=== PATIENT | male | born 1970 | race Caucasian/White ===

== ENCOUNTER 2017-04-27 16:50 | Inpatient (IN) | payer MEDICARE, OTHER ==
[~2017-04-27] VITALS: Ht 175.3 cm; Wt 79.5 kg
[~2017-04-27 16:50] MED LIST: KETO2%T TOP
[2017-04-27 17:14] VITALS: BP 119/83; PULSE 83; RESP 16; TEMP 98.9; O2SAT 96
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
[2017-04-27] MEDS ORDERED: [UNRECOGNIZED DRUG - OTHER] (17:49)
[2017-04-27] MEDS ORDERED: CELE20TA PO (17:49)
[2017-04-27] MEDS ORDERED: KLON2TAB PO (17:49)
[2017-04-27] MEDS ORDERED: STELAZINE (17:49)
[2017-04-27 18:24] LABS: AUTOMATED NEUTROPHIL # 9.3 TH/MM3 (1.8-7.7); BASOPHIL # 0.1 TH/MM3 (0-0.2); BASOPHIL % 0.5 % (0.0-2.0); EOSINOPHIL # 0.3 TH/MM3 (0-0.4); EOSINOPHIL % 2.1 % (0.0-4.0); HEMATOCRIT 46.6 % (39.0-51.0); HEMO FLAGS DIFF FINAL; LYMPH % 14.9 % (9.0-44.0); LYMPHOCYTE # 1.9 TH/MM3 (1.0-4.8); MEAN CELL VOLUME 94.3 FL (80.0-100.0); MEAN CORPUSCULAR HEMOGLOBIN 30.4 PG (27.0-34.0); MEAN CORPUSCULAR HGB CONC 32.2 % (32.0-36.0); MONO % 8.5 % (0.0-8.0); PLATELET COUNT 261 TH/MM3 (150-450); RED BLOOD COUNT 4.94 MIL/MM3 (4.50-5.90); RED CELL DISTRIBUTION WIDTH 13.4 % (11.6-17.2); WHITE BLOOD COUNT 12.6 TH/MM3 (4.0-11.0)
[2017-04-27 18:41] LABS: ALKALINE PHOSPHATASE 94 U/L (45-117); TOTAL BILIRUBIN ADULT 0.3 MG/DL (0.2-1.0)
[2017-04-27 18:50] LABS: ALT (GPT) 26 U/L (12-78); ANION GAP 8 MEQ/L (5-15); AST (GOT) 22 U/L (15-37); BICARBONATE 24.8 MEQ/L (21.0-32.0); BLOOD UREA NITROGEN 9 MG/DL (7-18); CHLORIDE 106 MEQ/L (98-107); GLOMERULAR FILTRATION RATE 81 ML/MIN (>89); POTASSIUM 3.9 MEQ/L (3.5-5.1); SODIUM (NA) 139 MEQ/L (136-145)
[2017-04-27 20:52] VITALS: BP 132/73; PULSE 110; RESP 18; O2SAT 97
[2017-04-27 22:05] LABS: AMPHETAMINE, URINE NEG (NEG); BARBITURATES, URINE NEG (NEG); COCAINE, URINE NEG (NEG)
[2017-04-27 22:10] VITALS: BP 115/69; PULSE 95; RESP 18; O2SAT 97
[2017-04-28 00:28] VITALS: BP 98/69; PULSE 98; RESP 18; TEMP 98; O2SAT 99
[2017-04-28] MEDS ORDERED: BENZTROPINE MESYLATE 2 MG/2 ML VIAL IM PRN (00:45)
[2017-04-28] MEDS ORDERED: LORazepam 2 MG/ML VIAL IM PRN (00:45)
[2017-04-28] MEDS ORDERED: BENZTROPINE MESYLATE 1 MG TAB PO PRN (00:45)
[2017-04-28] MEDS ORDERED: ACETAMINOPHEN 325 MG TAB PO PRN ×2 (00:45→10:45)
[2017-04-28] MEDS ORDERED: diphenhydrAMINE HCL 50 MG CAP PO PRN (00:45)
[2017-04-28] MEDS ORDERED: MAGNESIUM HYDROXIDE SUSP 30 ML CUP PO PRN ×2 (00:45→10:45)
[2017-04-28] MEDS ORDERED: ALUMINUM/MAGNESIUM/SIMETH 30 ML CUP PO PRN ×2 (00:45→10:45)
[2017-04-28] MEDS ORDERED: diphenhydrAMINE HCL 50 MG/ML VIAL IM PRN (00:45)
[2017-04-28] MEDS ORDERED: LORazepam 1 MG TAB PO PRN (00:45)
[2017-04-28] MEDS: NICOTINE 21 MG/24 HR PATCH T-DERMAL SCH (08:30)
[2017-04-28 10:09] LABS: ANION GAP 8 MEQ/L (5-15); BICARBONATE 24.6 MEQ/L (21.0-32.0); BLOOD UREA NITROGEN 8 MG/DL (7-18); CHLORIDE 105 MEQ/L (98-107); GLOMERULAR FILTRATION RATE 92 ML/MIN (>89); POTASSIUM 3.7 MEQ/L (3.5-5.1); SODIUM (NA) 138 MEQ/L (136-145)
[2017-04-28 10:11] LABS: HDL CHOLESTEROL 25.3 MG/DL (40.0-60.0); LDL CHOLESTEROL 65 MG/DL (0-99)
[2017-04-28] MEDS ORDERED: traZODone HCL 50 MG TAB PO PRN (10:45)
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
[2017-04-28 16:52] LABS: HEMOGLOBIN A1a 1.1 %; HEMOGLOBIN A1b 1.9 %; HEMOGLOBIN Ao 83.7 %; HEMOGLOBIN LA1C 2.3 %
[2017-04-28 18:00] VITALS: BP 114/50; PULSE 83; RESP 16
[2017-04-28] MEDS: REMOVE OLD NICOTINE PATCH T-DERMAL SCH (20:43)
[2017-04-29 05:35] VITALS: BP 105/61; PULSE 84; RESP 18; TEMP 97.7; O2SAT 95
[2017-04-29] MEDS: NICOTINE 21 MG/24 HR PATCH T-DERMAL SCH (09:00)
[2017-04-29] MEDS ORDERED: NICOTINE 21 MG/24 HR PATCH T-DERMAL SCH (09:00)
[2017-04-29 11:18] VITALS: BP 156/79; PULSE 76; RESP 18; O2SAT 98
--- NOTE | 2017-04-29 11:59 | HHI.PYPN ---
Subjective Remarks This is a request for second opinion. Patient's note was reviewed, case discussed with nursing, and patient seen for the interview. Patient is initially pleasant but becomes guarded and oppositional poor insight into his mental health. Admits to being off medications for 3 months and has been wandering apparently for the past 3 months [place] to . Patient says he used to be on Stelazine and Celexa but this cannot be confirmed. He remains with a fixed delusion that the government in the episc[employer] are conspiring against him. He gets irritable when asked specifics. Denies auditory hallucinations. Behaving well on the unit Objective Alert: Yes [place]: Person, Place Mood: Angry Affect: Blunted Memory Intact: Immediate (not formally tested) Hallucinations: Auditory (denies) Delusions: Yes Delusion Type: Paranoid (that the episcopalian and government is conspiring against him) Suicidal: Ideation (denies) Homicidal: Ideation (denies) Insight/Judgment Poor Vitals/IOs Vital Signs Date Time Temp Pulse Resp B/P Pulse Ox O2 Delivery O2 Flow Rate FiO2 04/29/17 11:18 76 18 156/79 98 04/29/17 05:35 97.7 04/27/17 22:10 Room Air Assessment & Plan Problem List: (1) Paranoid type schizophrenia, chronic state ICD Code: F20.0 Assessment & Plan I agree with first opinion to continue petition secondary to acute psychosis. We will start Zyprexa by mouth or IM after find a family member or friend to approve his medications Justification for Cont. Inpt. Patient will decompensate in a less restrictive setting Request HC Surrog/Guard Advoc?: No Bertin Díaz DO Apr 29, 2017 11:59
[2017-04-29] MEDS ORDERED: OLANZapine IM 10 MG VIAL IM SCH (12:00)
[2017-04-29] MEDS ORDERED: OLANZapine 5 MG TAB PO SCH (12:00)
[2017-04-29 18:43] VITALS: BP 120/68; PULSE 75; RESP 18; TEMP 98.1; O2SAT 97
[2017-04-29] MEDS: REMOVE OLD NICOTINE PATCH T-DERMAL SCH (21:00)
[2017-04-30 06:19] VITALS: BP 116/55; PULSE 76; RESP 16; TEMP 97.3; O2SAT 96
[2017-04-30] MEDS: NICOTINE 21 MG/24 HR PATCH T-DERMAL SCH (09:00)
--- NOTE | 2017-04-30 14:47 | HHI.PYPN ---
Subjective Remarks Patient was seen and case discussed with nursing. Patient remains oppositional but less so compared to yesterday. Provided a phone number for his mother to get collaterals and approval for medications. However, per nursing nobody is taking up the phone. He remains this fixed delusions and has poor insight into his mental health. Affect is sarcastic and apathetic. Objective Alert: Yes [place]: Person, Place, Date Mood: Oppositional Affect: Blunted Memory Intact: Immediate (not formally tested) Hallucinations: Auditory (denies) Delusions: Yes Delusion Type: Paranoid (that the [employer] and [employer] is conspiring against him) Suicidal: Ideation (denies) Homicidal: Ideation (denies) Insight/Judgment Poor Vitals/IOs Vital Signs Date Time Temp Pulse Resp B/P Pulse Ox O2 Delivery O2 Flow Rate FiO2 04/30/17 06:19 97.3 76 16 116/55 96 04/27/17 22:10 Room Air Assessment & Plan Problem List: (1) Paranoid type schizophrenia, chronic state ICD Code: F20.0 Assessment & Plan Continue to work on getting consents for medication Justification for Cont. Inpt. Patient would decompensate in a less restrictive setting Request HC Surrog/Guard Advoc?: No Bertin Díaz DO Apr 30, 2017 14:47
[2017-04-30 15:34] VITALS: BP_SYST 55; PULSE 74; RESP 18; TEMP 98.5; O2SAT 98
[2017-04-30] MEDS: REMOVE OLD NICOTINE PATCH T-DERMAL SCH (21:00)
[2017-05-01 06:05] VITALS: BP 94/51; PULSE 75; RESP 16; TEMP 95.7; O2SAT 96
[2017-05-01] MEDS: NICOTINE 21 MG/24 HR PATCH T-DERMAL SCH (09:31)
--- NOTE | 2017-05-01 13:25 | HHI.PYPN ---
Subjective Remarks Patient discussed with treatment team, patient seen on unit with Dr. Sifuentes, chart review, patient continues delusional, though his no behavior problems on the unit is otherwise calm cooperative with floor staff and hygiene. He denies suicidality homicidality voices or visions. For now continue treatment Review of Systems Except as stated in HPI: all other systems reviewed are Neg Objective Alert: Yes [place]: Person, Place, Date Mood: Oppositional Affect: Blunted Memory Intact: Immediate (not formally tested) Hallucinations: Auditory (denies) Delusions: Yes Delusion Type: Paranoid (that the [employer] and [employer] is conspiring against him) Suicidal: Ideation (denies) Homicidal: Ideation (denies) Insight/Judgment Poor Vitals/IOs Vital Signs Date Time Temp Pulse Resp B/P Pulse Ox O2 Delivery O2 Flow Rate FiO2 05/01/17 06:05 95.7 75 16 94/51 96 04/27/17 22:10 Room Air Assessment & Plan Problem List: (1) Paranoid type schizophrenia, chronic state ICD Code: F20.0 Assessment & Plan Estimated LOS: days patient continues paranoid and delusional, though no behavioral issues, he is calm compliant with structure on unit on the unit. For now continue treatment Justification for Cont. Inpt. This time patient will decompensate with placed a lower level of care Discharge Planning To be determined Request HC Surrog/Guard Advoc?: No Meet Mcdonough MD May 01, 2017 13:24
[2017-05-01 17:13] VITALS: BP 113/70; PULSE 92; RESP 18; TEMP 96.6; O2SAT 97
[2017-05-01] MEDS: REMOVE OLD NICOTINE PATCH T-DERMAL SCH (21:00)
[2017-05-02 06:19] VITALS: BP 98/58; PULSE 82; RESP 18; TEMP 98.6; O2SAT 96
[2017-05-02] MEDS: NICOTINE 21 MG/24 HR PATCH T-DERMAL SCH (08:56)
--- NOTE | 2017-05-02 16:14 | HHI.PYPN ---
Subjective Remarks Patient seen in day room with nurse Alexandr, chart review, this time patient is refusing to accept his recommended medications of Zyprexa. Continues to show signs of delusions psychosis with little insight. Though he does deny voices or visions denies suicidality or homicidality. He has been no behavior problems on the unit is eating and sleeping well. At this time I feel she continue observation. Though this gentleman remain psychotic will need further time to assess if he meets criteria to be retained involuntarily under the Benson act Review of Systems Except as stated in HPI: all other systems reviewed are Neg Objective Alert: Yes [place]: Person, Place, Date Mood: Oppositional Affect: Blunted Memory Intact: Immediate (not formally tested) Hallucinations: Auditory (denies) Delusions: Yes Delusion Type: Paranoid (that the oriental orthodox and government is conspiring against him) Suicidal: Ideation (denies) Homicidal: Ideation (denies) Insight/Judgment Poor Vitals/IOs Vital Signs Date Time Temp Pulse Resp B/P Pulse Ox O2 Delivery O2 Flow Rate FiO2 05/02/17 06:19 98.6 82 18 98/58 96 Assessment & Plan Problem List: (1) Paranoid type schizophrenia, chronic state ICD Code: F20.0 Assessment & Plan Estimated LOS: days patient continues psychotic paranoid and somewhat delusional, though no behavioral problems. He is still refusing any psychotropic medication. For now we'll continue monitoring Justification for Cont. Inpt. At this time patient will probably decompensate if placed in the lower level of care Discharge Planning To be determined Request HC Surrog/Guard Advoc?: No Meet Mcdonough MD May 02, 2017 16:14
[2017-05-02 18:00] VITALS: BP_SYST 131; BP_SYST 140; BP_DIAS 68; BP_DIAS 71; PULSE 89; RESP 17; RESP 18; TEMP 97.8; TEMP 98.1; O2SAT 95
[2017-05-02] MEDS: REMOVE OLD NICOTINE PATCH T-DERMAL SCH (21:00)
[2017-05-03 05:35] VITALS: BP 112/55; PULSE 67; RESP 18; TEMP 98.1; O2SAT 97
[2017-05-03] MEDS: NICOTINE 21 MG/24 HR PATCH T-DERMAL SCH (08:40)
[2017-05-03] MEDS ORDERED: ZYPR10TA PO (12:10)
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
== END 2017-05-03 14:20 | disposition home or self-care (01) | DRG 885 ==
LOC: NEDAMB 16:50 → NEDA 23:07 → H260 23:41
PROVIDERS: ADMIT Psychiatry & Neurology Psychiatry; ATTEND Psychiatry & Neurology Psychiatry
DX: F20.0 Paranoid schizophrenia (principal); Z59.0 Homelessness; F31.9 Bipolar disorder, unspecified; F17.210 Nicotine dependence, cigarettes, uncomplicated
CPT/HCPCS: 80048; 80053; 80061; 80307; 83036; 85025; 99285

== ENCOUNTER 2017-06-15 23:45 | Emergency (ER) | payer MEDICARE ==
[~2017-06-15 23:45] MED LIST changes: +CELE20TA PO; -KETO2%T TOP; +KLON2TAB PO; +STELAZINE; +ZYPR10TA PO; +[UNRECOGNIZED DRUG - OTHER]
[2017-06-15 23:49] VITALS: BP 130/83; PULSE 93; RESP 16; TEMP 97.8; O2SAT 97
== END 2017-06-16 02:08 | disposition left against medical advice (07) ==
LOC: NED 23:45
DX: R21 Rash and other nonspecific skin eruption (principal); Z53.21 Procedure and treatment not carried out due to patient leaving prior to being seen by health care provider
CPT/HCPCS: 99281

== ENCOUNTER 2017-06-16 13:27 | Emergency (ER) | payer MEDICARE ==
[2017-06-16 13:28] VITALS: O2SAT 100
== END 2017-06-16 13:47 | disposition left against medical advice (07) ==
LOC: NED 13:27
DX: Z53.21 Procedure and treatment not carried out due to patient leaving prior to being seen by health care provider (principal)
CPT/HCPCS: 99281